=== PATIENT | female | born 1970 | race Caucasian/White ===

== ENCOUNTER 2016-08-11 18:13 | Emergency (ER) | payer SELFPAY ==
--- NOTE | 2016-08-12 03:47 | ER ---
ADMIT: 08/11/2016 RM/LOC: ER [facility] MR#: [id number] [address] [facility] [id number] [place], [place] [id number] RUBÉN JONES, ADA [address] [id number] Emergency Room Report SEX: F AGE: 45 : 1970 DATE: 08/11/2016 The patient is a 45-year-old, Malay-speaking Finnish female with intermittent epigastric pain radiating to back for the past 12 months by review of electronic records. She states the pain has only been going on 12 hours tonight. Denies any eructations, fevers, chills, nausea, or vomiting. Exam remarkable for nontoxic, afebrile, comfortable-appearing female, minimally tender epigastrium. EKG shows sinus rhythm without ST-T or Q-wave change. Chest x- ray, negative. CT abdomen and pelvis negative. WBC 14.9, CRP 1.52, normal lactic, D-dimer, troponin and lipase. The patient given GI cocktail with no improvement. Then given Zofran, Toradol, Dilaudid, Protonix with relief. Home with hydrocodone 5/325 as needed. Recommend low-fat, low-protein diet. Follow up Dr. Chavez for possible HIDA scan, or ultrasound. Kalyan Estrada MD/ ryanl JOB #: [id number] CC: Stanley Ward MD, Attending Physician Manjinder Chavez MD, Family Physician Manjinder Chavez MD
== END 2016-08-11 22:05 | disposition home or self-care (01) ==
LOC: ER 18:13
DX: R10.13 Epigastric pain (principal); R07.81 Pleurodynia; R05 Cough; Z88.0 Allergy status to penicillin